=== PATIENT | male | born 1970 | race African-American/Black ===

== ENCOUNTER 2019-01-16 17:33 | Emergency (ER) | payer SELFPAY ==
--- NOTE | 2019-01-16 18:29 | ER Document Report ---
ED Medical Screen (RME) - General Chief Complaint: Abdominal Pain Stated Complaint: ABDOMINAL PAIN Time Seen by Provider: 01/16/19 18:26 Mode of Arrival: Ambulatory Information source: Patient Notes: 48-year-old male presented to ED for complaint of upper abdominal discomfort for about a week week and a half every time he eats. He states it is white week and a half is been 3 episodes that after he ate he just vomited a lot of water. Patient denies fevers or diarrhea. He states he does not have any sharp pain burning anything like that is just very uncomfortable after he eats. Patient is alert oriented respirations regular and unlabored speaking in full sentences and walks with a even steady gait at this time. He denies any medical history or surgical history. He states he does not smoke sometimes drinks a couple beer during the week. States he does not use any illicit drugs. I have greeted and performed a rapid initial assessment of this patient. A comprehensive ED assessment and evaluation of the patient, analysis of test results and completion of medical decision making process will be conducted by an additional ED providers. TRAVEL OUTSIDE OF THE [place] IN LAST 30 DAYS: No - Related Data Allergies/Adverse Reactions: No Known Allergies Allergy (Verified 01/16/19 17:34) Physical Exam - Vital signs Vitals: Temp Pulse Resp BP Pulse Ox 98.0 F 70 20 114/72 100 01/16/19 17:44 01/16/19 17:44 01/16/19 17:44 01/16/19 17:44 01/16/19 17:44 Course - Vital Signs Vital signs: Temp Pulse Resp BP Pulse Ox 98.0 F 70 20 114/72 100 01/16/19 17:44 01/16/19 17:44 01/16/19 17:44 01/16/19 17:44 01/16/19 17:44
[2019-01-16 19:55] LABS: ABSOLUTE EOSINOPHILS # (AUTO) 0.7 10^3/uL (0.0-0.6); ABSOLUTE LYMPHOCYTES (AUTO) 2.2 10^3/uL (0.5-4.7); ABSOLUTE MONOCYTES (AUTO) 0.7 10^3/uL (0.1-1.4); ABSOLUTE NEUT (AUTO) 4.7 10^3/uL (1.7-8.2); BASOPHILS % (AUTO) 0.4 % (0-2); HEMATOCRIT 42.3 % (37.9-51.0); HEMOGLOBIN 14.2 g/dL (13.5-17.0); LYMPHOCYTES % (AUTO) 26.5 % (13-45); MEAN CORPUSCULAR HEMOGLOBIN 28.9 pg (27.0-33.4); MEAN CORPUSCULAR HGB CONC 33.5 g/dL (32.0-36.0); MEAN CORPUSCULAR VOLUME 86 fl (80-97); MONOCYTES % (AUTO) 8.1 % (3-13); PLATELET COUNT 198 10^3/uL (150-450); RED CELL DISTRIBUTION WIDTH 13.4 % (11.5-14.0); TOTAL CELLS COUNTED % (AUTO) 100 %; WHITE BLOOD COUNT 8.3 10^3/uL (4.0-10.5)
[2019-01-16 19:58] LABS: APPEARANCE,URINE CLEAR; BILIRUBIN,URINE NEGATIVE (NEGATIVE); COLOR,URINE DARK YELLOW; GLUCOSE, URINE NEGATIVE (NEGATIVE); KETONES,URINE TRACE mg/dL (NEGATIVE); LEUKOCYTE ESTERASE,URINE NEGATIVE (NEGATIVE); NITRITE,URINE NEGATIVE (NEGATIVE); PROTEIN,URINE 30 mg/dL (NEGATIVE)
[2019-01-16 20:12] LABS: ALBUMIN 4.5 g/dL (3.5-5.0); ALKALINE PHOSPHATASE 89 U/L (38-126); ANION GAP 11 (5-19); ASPARTATE AMINO TRANSFERASE 28 U/L (17-59); BILIRUBIN,DIRECT 0.1 mg/dL (0.0-0.4); BILIRUBIN,TOTAL 0.7 mg/dL (0.2-1.3); BLOOD UREA NITROGEN 13 mg/dL (7-20); CALCIUM 9.5 mg/dL (8.4-10.2); CARBON DIOXIDE 29 mmol/L (22-30); CHLORIDE 98 mmol/L (98-107); GLUCOSE 87 mg/dL (75-110); POTASSIUM 4.2 mmol/L (3.6-5.0); TOTAL PROTEIN 7.6 g/dL (6.3-8.2)
--- NOTE | 2019-01-16 21:30 | RADIOLOGY REPORT (SQ) ---
US ABDOMEN LIMITED EXAM DATE: 01/16/2019 6:29 PM CDT HISTORY: Right upper quadrant pain. COMPARISON: None. TECHNIQUE: Grayscale and color Doppler imaging of the right upper quadrant was performed. FINDINGS: The liver has normal echotexture without focal lesion identified. The main portal vein has normal hepatopetal flow. No shadowing gallstones are seen. No pericholecystic fluid or gallbladder wall thickening. The common bile duct is normal caliber. The visualized portions of the pancreas are unremarkable. No hydronephrosis or shadowing renal stones are identified. The right kidney is normal in size. The visualized portions of the IVC and aorta are patent. IMPRESSION: No evidence of acute abdominal findings.
[2019-01-16] MEDS ORDERED: FAMOTIDINE 20 MG TABLET PO ONE (22:58)
[2019-01-16] MEDS ORDERED: SUCRALFATE 1 GM TABLET PO ONE (22:58)
--- NOTE | 2019-01-16 22:59 | ER Document Report ---
ED GI/ - General Chief Complaint: Abdominal Pain Stated Complaint: ABDOMINAL PAIN Time Seen by Provider: 01/16/19 18:26 Mode of Arrival: Ambulatory Notes: Patient is a 48-year-old male that comes to the emergency department for chief complaint of intermittent epigastric pain. He states this is been going on intermittently for some time but much worse over the past few days, he states that when he eats shortly after this he will feel cramping, nausea, pain in his upper abdomen, mainly in the middle. He denies vomiting, flank pain, chest pain, shortness of breath, fever, difficulty breathing. He states his bowel movements are all normal. He is not on any daily medications, he denies smoking, he reports only occasional alcohol. He denies recreational drugs. He denies any surgeries. TRAVEL OUTSIDE OF THE [place] IN LAST 30 DAYS: No - Related Data Allergies/Adverse Reactions: No Known Allergies Allergy (Verified 01/16/19 17:34) Past Medical History - General Information source: Patient - Social History Smoking Status: Never Smoker Chew tobacco use (# tins/day): No Frequency of alcohol use: Occasional Drug Abuse: None Lives with: Family Family History: Reviewed & Not Pertinent Patient has suicidal ideation: No Patient has homicidal ideation: No - Immunizations Immunizations up to date: Yes Review of Systems - Review of Systems Constitutional: No symptoms reported EENT: No symptoms reported Cardiovascular: No symptoms reported Respiratory: No symptoms reported Gastrointestinal: See HPI Genitourinary: No symptoms reported Male Genitourinary: No symptoms reported Musculoskeletal: No symptoms reported Skin: No symptoms reported Hematologic/Lymphatic: No symptoms reported Neurological/Psychological: No symptoms reported Physical Exam - Vital signs Vitals: Temp Pulse Resp BP Pulse Ox 98.0 F 70 20 114/72 100 01/16/19 17:42 01/16/19 17:42 01/16/19 17:42 01/16/19 17:42 01/16/19 17:42 - Notes Notes: GENERAL: Alert, interacts well. No acute distress. HEAD: Normocephalic, atraumatic. EYES: Pupils equal, round, and reactive to light. Extraocular movements intact. ENT: Oral mucosa moist, tongue midline. Oropharynx unremarkable. Airway patent. LUNGS: Clear to auscultation bilaterally, no wheezes, rales, or rhonchi. No respiratory distress. HEART: Regular rate and rhythm. No murmur ABDOMEN: Minimal epigastric tenderness. Abdomen is otherwise completely unremarkable. No guarding or rigidity, normal bowel sounds. GENITOURINARY: Deferred EXTREMITIES: Moves all 4 extremities spontaneously. No edema, normal radial and dorsalis pedis pulses bilaterally. No cyanosis. BACK: no cervical, thoracic, lumbar midline tenderness. No saddle anesthesia, normal distal neurovascular exam. Moves all extremities in full range of motion. NEUROLOGICAL: Alert and oriented x3. Normal speech. Cranial nerves II through XII grossly intact. PSYCH: Normal affect, normal mood. SKIN: Warm, dry, normal turgor. No rashes or lesions noted. Course - Re-evaluation Re-evalutation: Patient very well-appearing on exam. He does have some mild epigastric tenderness. His remaining examination is unremarkable. CBC, chemistry, ultrasound, lipase all reviewed and unremarkable. Urinalysis unremarkable excep t for being concentrated. Discussed with patient. Based on his intermittent symptoms, negative work-up, benign abdominal exam I suspect this is most likely gastritis. I did discuss different options. Patient will be treated for suspected gastritis, discussed follow-up instructions, discussed return. Patient states understanding and agreement. - Vital Signs Vital signs: Temp Pulse Resp BP Pulse Ox 97.6 F 55 L 16 119/78 99 01/16/19 23:03 01/16/19 23:03 01/16/19 23:03 01/16/19 23:03 01/16/19 23:03 - Laboratory Result Diagrams: 01/16/19 19:14 01/16/19 19:14 Laboratory results interpreted by me: 01/16/19 01/16/19 19:14 19:14 Eos % (Auto) 8.0 H Absolute Eos (auto) 0.7 H Urine Protein 30 H Urine Ketones TRACE H Urine Urobilinogen 4.0 H Discharge - Discharge Clinical Impression: Epigastric pain Condition: Stable Disposition: HOME, SELF-CARE Additional Instructions: Your symptoms and examination indicate gastritis/esophagitis (inflammation of your upper gastrointestinal tract). Take Zofran for nausea if needed, take Carafate and Pepcid as prescribed to help treat this, you can take additional Rolaids, Tums, Maalox, etc. if needed. You can take Tylenol for pain. Avoid NS AIDs, alcohol, smoking, caffeine, spicy food. Start with clear fluids, progress to bland diet. Follow-up with primary care for additional evaluation and treatment including possible H. pylori testing, HIDA, or even endoscopy. Return if you worsen including uncontrolled vomiting, vomiting blood, black stools, severe pain, fever of 100.4 or greater, or any other concerning or worsening symptoms. Prescriptions: Sucralfate [Carafate 1 gm Tablet] 1 gm PO QID #20 tablet Famotidine [Pepcid 20 mg Tablet] 20 mg PO BID #14 tablet Ondansetron [Zofran Odt 4 mg Tablet] 1 - 2 tab PO Q4H PRN #15 tab.rapdis PRN Reason: For Nausea/Vomiting
[2019-01-16 23:05] VITALS: BP 119/78
== END 2019-01-16 23:10 | disposition home or self-care (01) ==
LOC: ER 17:33
DX: R10.13 Epigastric pain (principal)
CPT/HCPCS: 36415; 76705; 80053; 81001; 83690; 85025; 99284